=== PATIENT | female | born 1970 | race American Indian/Alaskan Native ===

== ENCOUNTER 2018-11-27 15:20 | Emergency (ER) | payer OTHER ==
[2018-11-27 15:30] VITALS: BP 123/85
[2018-11-27 17:50] LABS: Basophils % (Auto) 0.7 % (0.0-1.8); Eosinophils % (Auto) 0.8 % (0.0-4.3); Hematocrit 38.8 % (30.3-42.9); Hemoglobin 13.2 gm/dl (10.1-14.3); Lymphocytes # (Auto) 1.2 K/mm3 (1.2-5.4); Lymphocytes % (Auto) 26.9 % (13.4-35.0); Mean Corpuscular HGB Conc 34 % (30-34); Mean Corpuscular Volume 100 fl (79-97); Monocytes # (Auto) 0.4 K/mm3 (0.0-0.8); Monocytes % (Auto) 8.1 % (0.0-7.3); Platelet Count 294 K/mm3 (140-440); Red Blood Count 3.86 M/mm3 (3.65-5.03); Red Cell Distribution Width 13.4 % (13.2-15.2)
[2018-11-27 18:06] LABS: Alanine Aminotransferase 11 units/L (7-56); Albumin 4.2 g/dL (3.9-5); BUN/Creatinine Ratio 19; Blood Urea Nitrogen 13 mg/dL (7-17); Calcium 8.9 mg/dL (8.4-10.2); Hemolysis Index 12
--- NOTE | 2018-11-27 18:42 | Emergency Department Report ---
ED Dizziness HPI - General Chief Complaint: Dizziness Stated Complaint: WEAKNESS Time Seen by Provider: 11/27/18 18:22 Source: patient Mode of arrival: Ambulatory Limitations: No Limitations - History of Present Illness Initial Comments: Pt is a 48 yo female who presents to the ED with c/o dizziness that began 1 week ago. She states it feels like the room is spinning. The patient says it is worse with certain head movements and worse with bending over. The patient states it makes her feel nauseous and have episodes of emesis. She denies any LYNCH, numb ness, unilateral weakness, visual disturbance or speech disturbance. She denies any PMHx. She has not taken anything for her sx. - Related Data Previous Rx's Medication Instructions Recorded Last Taken Type Cetirizine HCl [ZyrTEC] 10 mg PO DAILY #30 tab.rapdis 11/27/18 Unknown Rx Fluticasone [Flonase] 1 spray NS QDAY #1 bottle 11/27/18 Unknown Rx Meclizine [Antivert] 25 mg PO TID PRN #30 tablet 11/27/18 Unknown Rx ED Review of Systems ROS: Stated complaint: WEAKNESS Other details as noted in HPI Comment: All other systems reviewed and negative ED Past Medical Hx - Social History Smoking Status: Current Every Day Smoker Substance Use Type: Alcohol - Medications Home Medications: Home Medications Medication Instructions Recorded Confirmed Last Taken Type Cetirizine HCl [ZyrTEC] 10 mg PO DAILY #30 tab.rapdis 11/27/18 Unknown Rx Fluticasone [Flonase] 1 spray NS QDAY #1 bottle 11/27/18 Unknown Rx Meclizine [Antivert] 25 mg PO TID PRN #30 tablet 11/27/18 Unknown Rx ED Physical Exam - General Limitations: No Limitations General appearance: alert, in no apparent distress - Head Head exam: Present: atraumatic, normocephalic - Eye Eye exam: Present: normal appearance, PERRL, EOMI. Absent: scleral icterus, conjunctival injection, nystagmus, periorbital swelling, periorbital tenderness - ENT ENT exam: Present: mucous membranes moist, other (pale nasal turbinates) - Neck Neck exam: Present: normal inspection, full ROM. Absent: tenderness, meningismus - Respiratory Respiratory exam: Present: normal lung sounds bilaterally. Absent: respiratory distress, wheezes, rales, rhonchi, stridor, chest wall tenderness, accessory mus pattie use, decreased breath sounds, prolonged expiratory - Cardiovascular Cardiovascular Exam: Present: regular rate, normal rhythm, normal heart sounds. Absent: systolic murmur, diastolic murmur, rubs, gallop - GI/Abdominal GI/Abdominal exam: Present: soft, normal bowel sounds. Absent: distended, tenderness, guarding, rebound, rigid - Neurological Exam Neurological exam: Present: alert, oriented X3, CN II-XII intact, normal gait, other (normal heel to paredes, normal finger to nose, 5/5 strength in the BUE/BLE, sensation intact, no neurodeficit, no nystagmus ). Absent: motor sensory deficit - Psychiatric Psychiatric exam: Present: normal affect, normal mood - Skin Skin exam: Present: warm, dry, intact ED Course Vital Signs 11/27/18 11/27/18 15:29 20:46 Temperature 98.3 F Pulse Rate 70 Respiratory 16 16 Rate Blood Pressure 123/85 O2 Sat by Pulse 98 Oximetry - Reevaluation(s) Reevaluation #1: 11/27/18 21:22 dizziness completely resolved after meclizine ED Medical Decision Making - Lab Data Result diagrams: 11/27/18 17:33 11/27/18 17:33 Lab Results 11/27/18 11/27/18 11/27/18 Range/Units 17:33 17:33 17:33 WBC 4.3 L (4.5-11.0) K/mm3 RBC 3.86 (3.65-5.03) M/mm3 Hgb 13.2 (10.1-14.3) gm/dl Hct 38.8 (30.3-42.9) % MCV 100 H (79-97) fl MCH 34 H (28-32) pg MCHC 34 (30-34) % RDW 13.4 (13.2-15.2) % Plt Count 294 (140-440) K/mm3 Lymph % (Auto) 26.9 (13.4-35.0) % [place] % (Auto) 8.1 H (0.0-7.3) % Eos % (Auto) 0.8 (0.0-4.3) % Baso % (Auto) 0.7 (0.0-1.8) % Lymph # 1.2 (1.2-5.4) K/mm3 [place] # 0.4 (0.0-0.8) K/mm3 Eos # 0.0 (0.0-0.4) K/mm3 Baso # 0.0 (0.0-0.1) K/mm3 Seg Neutrophils % 63.5 (40.0-70.0) % Seg Neutrophils # 2.8 (1.8-7.7) K/mm3 Sodium 142 (137-145) mmol/L Potassium 4.5 (3.6-5.0) mmol/L Chloride 105.0 (98-107) mmol/L Carbon Dioxide 25 (22-30) mmol/L Anion Gap 17 mmol/L BUN 13 (7-17) mg/dL Creatinine 0.7 (0.7-1.2) mg/dL Estimated GFR > 60 ml/min BUN/Creatinine Ratio 19 % Glucose 107 H (65-100) mg/dL Calcium 8.9 (8.4-10.2) mg/dL Total Bilirubin 0.30 (0.1-1.2) mg/dL AST 16 (5-40) units/L ALT 11 (7-56) units/L Alkaline Phosphatase 56 (35-129) units/L Total Protein 7.4 (6.3-8.2) g/dL Albumin 4.2 (3.9-5) g/dL Albumin/Globulin Ratio 1.3 % Lipase 20 (13-60) units/L Urine Color (Yellow) Urine Turbidity (Clear) Urine pH (5.0-7.0) Ur Specific [place] (1.003-1.030) Urine Protein (Negative) mg/dL Urine Glucose (UA) (Negative) mg/dL Urine Ketones (Negative) mg/dL Urine Blood (Negative) Urine Nitrite (Negative) Urine Bilirubin (Negative) Urine Urobilinogen (<2.0) mg/dL Ur Leukocyte Esterase (Negative) Urine WBC (Auto) (0.0-6.0) /HPF Urine RBC (Auto) (0.0-6.0) /HPF U Epithel Cells (Auto) (0-13.0) /HPF Urine Mucus /HPF Urine HCG, Qual (Negative) 11/27/18 Range/Units 19:00 WBC (4.5-11.0) K/mm3 RBC (3.65-5.03) M/mm3 Hgb (10.1-14.3) gm/dl Hct (30.3-42.9) % MCV (79-97) fl MCH (28-32) pg MCHC (30-34) % RDW (13.2-15.2) % Plt Count (140-440) K/mm3 Lymph % (Auto) (13.4-35.0) % [place] % (Auto) (0.0-7.3) % Eos % (Auto) (0.0-4.3) % Baso % (Auto) (0.0-1.8) % Lymph # (1.2-5.4) K/mm3 [place] # (0.0-0.8) K/mm3 Eos # (0.0-0.4) K/mm3 Baso # (0.0-0.1) K/mm3 Seg Neutrophils % (40.0-70.0) % Seg Neutrophils # (1.8-7.7) K/mm3 Sodium (137-145) mmol/L Potassium (3.6-5.0) mmol/L Chloride (98-107) mmol/L Carbon Dioxide (22-30) mmol/L Anion Gap mmol/L BUN (7-17) mg/dL Creatinine (0.7-1.2) mg/dL Estimated GFR ml/min BUN/Creatinine Ratio % Glucose (65-100) mg/dL Calcium (8.4-10.2) mg/dL Total Bilirubin (0.1-1.2) mg/dL AST (5-40) units/L ALT (7-56) units/L Alkaline Phosphatase (35-129) units/L Total Protein (6.3-8.2) g/dL Albumin (3.9-5) g/dL Albumin/Globulin Ratio % Lipase (13-60) units/L Urine Color Yellow (Yellow) Urine Turbidity Clear (Clear) Urine pH 5.0 (5.0-7.0) Ur Specific [place] 1.034 H (1.003-1.030) Urine Protein <15 mg/dl (Negative) mg/dL Urine Glucose (UA) Neg (Negative) mg/dL Urine Ketones Tr (Negative) mg/dL Urine Blood Neg (Negative) Urine Nitrite Neg (Negative) Urine Bilirubin Neg (Negative) Urine Urobilinogen 2.0 (<2.0) mg/dL Ur Leukocyte Esterase Neg (Negative) Urine WBC (Auto) 1.0 (0.0-6.0) /HPF Urine RBC (Auto) 4.0 (0.0-6.0) /HPF U Epithel Cells (Auto) 3.0 (0-13.0) /HPF Urine Mucus 2+ /HPF Urine HCG, Qual Negative (Negative) Vital Signs 11/27/18 11/27/18 15:29 20:46 Temperature 98.3 F Pulse Rate 70 Respiratory 16 16 Rate Blood Pressure 123/85 O2 Sat by Pulse 98 Oximetry Vital Signs (72 hours) 11/27/18 11/27/18 15:29 20:46 Temperature 98.3 F Pulse Rate 70 Respiratory 16 16 Rate Blood Pressure 123/85 O2 Sat by Pulse 98 Oximetry - EKG Data -: EKG Interpreted by Me EKG shows normal: sinus rhythm, axis, intervals, QRS complexes, ST-T waves Rate: normal - Medical Decision Making Pt is a 48 yo female who presents to the ED with c/o dizziness that began 1 week ago. She states it feels like the room is spinning. The patient says it is worse with certain head movements and worse with bending over. The patient states it makes her feel nauseous and have episodes of emesis. She denies any LYNCH, numbness, unilateral weakness, visual disturbance or speech disturbance. She denies any PMHx. She has not taken anything for her sx. no neuro deficits, normal gait, no nystagumus. UA is normal. Labs WNL. orthostatic vitals are normal. EKG is normal. Pt given a dose of meclizine and symptoms completely resolved. pt has pale turbinates will also tx for seasonal allergies. Will have pt follow up with an ENT doctor. Discussed in detail to return to the ED if continue having symptoms or any new or worsening symptoms. Critical care attestation.: If time is entered above; I have spent that time in minutes in the direct care of this critically ill patient, excluding procedure time. ED Disposition Clinical Impression: Dizziness, Seasonal allergies Disposition: DC-01 TO HOME OR SELFCARE Is pt being admited?: No Does the pt Need Aspirin: No Condition: Stable Instructions: Dizziness (ED) Additional Instructions: Please take medication as prescribed. Please return to the emergency room immediately for any new or worsening symptoms or if symptoms not improving. Please follow up with Dr. Alberto in the next 2-3 days. Please follow up with a primary care doctor in the next 2-3 days. Keep drinking plenty of fluids. Prescriptions: Meclizine [Antivert] 25 mg PO TID PRN #30 tablet PRN Reason: Vertigo Fluticasone [Flonase] 1 spray NS QDAY #1 bottle Cetirizine HCl [ZyrTEC] 10 mg PO DAILY #30 tab.rapdis Referrals: [facility] [Other] - 2-3 Days LES ALBERTO MD [Staff Physician] - 2-3 Days Time of Disposition: 21:27 Print Language: PANAMANIAN
[2018-11-27 19:45] LABS: Bilirubin,Urine NEG (Negative); Blood,Urine NEG (Negative); Color,Urine Yellow (Yellow); Mucus,Urine 2+ /HPF; Protein,Urine <15 mg/dL mg/dL (Negative)
[2018-11-27 19:53] LABS: HCG Qualitative,Urine Negative (Negative)
[2018-11-27] MEDS ORDERED: ANTIVERT PO ONE (19:56)
== END 2018-11-27 21:45 | disposition home or self-care (01) ==
LOC: ED 15:20
DX: R42 Dizziness and giddiness (principal); R11.2 Nausea with vomiting, unspecified; J30.2 Other seasonal allergic rhinitis; F17.200 Nicotine dependence, unspecified, uncomplicated
CPT/HCPCS: 36415; 80053; 81001; 81025; 83690; 85025; 93005; 93010

== ENCOUNTER 2022-02-05 15:34 | Emergency (ER) | payer MEDICAID, OTHER ==
--- NOTE | 2022-02-06 01:21 | Cat Scan Report ---
CT MAXILLOFACIAL WITHOUT CONTRAST INDICATION / CLINICAL INFORMATION: Fall/. TECHNIQUE: CT face was performed without the administration of intravenous contrast. In addition to a xial source images, coronal and sagittal MPR series were provided. All CT scans at this location are performed using CT dose reduction for ALARA by means of automated exposure control. COMPARISON: None available. FINDINGS: FACIAL BONES: Bilateral nasal bone deformities are demonstrated with minimal overlying soft tissue sw elling excluded. The nasal septum demonstrates rightward deviation. Osseous structures of the face an d mandible otherwise appear intact. PARANASAL SINUSES: No significant abnormality. ORBITS: No significant abnormality. SOFT TISSUES: No significant abnormality. VISUALIZED INTRACRANIAL STRUCTURES: No significant abnormality. ADDITIONAL FINDINGS: None. IMPRESSION: 1. Minimally displaced acute nasal bone fractures with minimal soft tissue swelling overlying. Signer Name: Steve Morales II, MD Signed: 02/06/2022 1:16 AM Workstation Name: [id number]
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
[2022-02-06 02:15] VITALS: BP 157/84
== END 2022-02-06 02:16 | disposition home or self-care (01) ==
LOC: ED 15:34
DX: S02.2XXA Fracture of nasal bones, initial encounter for closed fracture (principal); L01.00 Impetigo, unspecified; Z98.890 Other specified postprocedural states; F17.290 Nicotine dependence, other tobacco product, uncomplicated; W19.XXXA Unspecified fall, initial encounter; Y93.89 Activity, other specified; Y92.89 Other specified places as the place of occurrence of the external cause; Y99.8 Other external cause status
CPT/HCPCS: 70486; 99283

== ENCOUNTER 2022-02-08 10:15 | Emergency (ER) | payer MEDICAID ==
[2022-02-08] MEDS ORDERED: diphenhydrAMINE 50 MG/ML VIAL IV ONE (11:02)
[2022-02-08] MEDS ORDERED: SODIUM CHLORIDE 0.9% 1000 ML 1,000 ML IV ONE (11:02)
[2022-02-08] MEDS ORDERED: FAMOTIDINE 20 MG/2 ML INJ IV ONE (11:02)
[2022-02-08] MEDS ORDERED: methylPREDNISolone Sod Succinate 125 MG/2 ML INJ IV ONE (11:02)
--- NOTE | 2022-02-08 11:06 | Emergency Department Report ---
HPI - General Chief Complaint: Allergic Reaction PUI?: No Time Seen by Provider: 02/08/22 10:27 - HPI HPI: Patient is a 51-year-old female that comes to the emergency room with right- sided facial swelling. She had a recent fall and was seen in the ER and started on amoxicillin. She and her mind thinks that this reaction is related to the amoxicillin. However, she is only taken 1 dose of the amoxicillin. I suspect is more likely related to her fall. She is already had a CT with a small nasal bone fracture. Right side of her face is red and swollen consistent with cellulitic sort of response. She does have a mild abrasion from her previous fall. Patient denies any fever or chills. She has no hypotension or tachycardia. ABCs are intact. She is controlling secretions. Swallowing without difficulty. ED Past Medical Hx - Past Medical History Previous Medical History?: No Hx Seizures: Yes Additional medical history: Vaginal delivery x 1 - Surgical History Past Surgical History?: Yes Additional Surgical History: x 1 - Family History Family history: no significant - Social History Smoking Status: Current Every Day Smoker Substance Use Type: None - Medications Home Medications: Home Medications Medication Instructions Recorded Confirmed Last Taken Type Cetirizine HCl [ZyrTEC] 10 mg PO DAILY #30 capsule 02/08/22 Unknown Rx Clindamycin [Clindamycin CAP] 300 mg PO Q8H #30 cap 02/08/22 Unknown Rx Neomy/Baci/Polymyx B Opth Oint 1 applic TP BID #1 tube 02/08/22 Unknown Rx [Neosporin] Polyvinyl Alcohol [Artificial 2 drop OD Q4H #1 bottle 02/08/22 Unknown Rx Tears] predniSONE [Deltasone] 20 mg PO DAILY #5 tablet 02/08/22 Unknown Rx ED Review of Systems ROS: Stated complaint: ALLERGIC REACTION Other details as noted in HPI Comment: All other systems reviewed and negative Physical Exam - Physical Exam Vital Signs: Vital Signs 02/08/22 10:39 Temperature 98.9 F Pulse Rate 68 Respiratory 16 Rate Blood Pressure 119/85 O2 Sat by Pulse 98 Oximetry Physical Exam: On exam on admission. Alert and oriented x4 Move all extremities well Right sided facial swelling noted. Right eyes swollen and edematous. I am able to open and pupils equal round react to light. ABCs intact. Taking p.o. Controlling secretions Abdomen soft nontender No CVA tenderness ED Course Vital Signs 02/08/22 10:39 Temperature 98.9 F Pulse Rate 68 Respiratory 16 Rate Blood Pressure 119/85 O2 Sat by Pulse 98 Oximetry ED Medical Decision Making - Medical Decision Making Vital Signs 02/08/22 02/08/22 02/08/22 10:39 11:48 15:51 Temperature 98.9 F Pulse Rate 68 85 66 Respiratory 16 17 17 Rate Blood Pressure 119/85 Blood Pressure 154/88 135/65 [Left] O2 Sat by Pulse 98 [address] scan from previous visit reviewed. I have asked patient to stop the amoxicillin. In the ER patient was given normal saline, 6 clindamycin, Solu-Medrol. Solu- Medrol did relieve the swelling. Family at bedside. Both patient and family educated on discharge plan of care including diet, activity, medications and follow-up. They all verbalized understanding. If patient has any further problems she is to return to the ER for further evaluation. At that time I would recommend repeat Inder imaging. On discharge patient is ambulatory, nontoxic [id number] and taking p.o. - Differential Diagnosis Cellulitis versus fracture versus allergic reaction Critical care attestation.: If time is entered above; I have spent that time in minutes in the direct care of this critically ill patient, excluding procedure time. ED Disposition Clinical Impression: Facial cellulitis Disposition: 01 HOME / SELF CARE / HOMELESS Is pt being admited?: No Does the pt Need Aspirin: No Condition: Stable Instructions: Cellulitis, Adult Additional Instructions: Medications as ordered today. no more amoxicillin follow up with pcp in 48 hours for recheck referral below Prescriptions: Polyvinyl Alcohol [Artificial Tears] 2 drop OD Q4H #1 bottle Clindamycin [Clindamycin CAP] 300 mg PO Q8H #30 cap predniSONE [Deltasone] 20 mg PO DAILY #5 tablet Neomy/Baci/Polymyx B Opth Oint [Neosporin] 1 applic TP BID #1 tube Cetirizine HCl [ZyrTEC] 10 mg PO DAILY #30 capsule Referrals: DANTE VIEYRA MD [Staff Physician] - 3-5 Days Forms: Work/School Release Form(ED) Time of Disposition: 14:01
[2022-02-08] MEDS ORDERED: CLINDAMYCIN 600 MG/50 mL 600 MG/50 ML BAG IV ONE (11:47)
[2022-02-08 15:51] VITALS: BP 135/65
== END 2022-02-08 18:24 | disposition home or self-care (01) ==
LOC: ED 10:15
DX: L03.211 Cellulitis of face (principal); F17.200 Nicotine dependence, unspecified, uncomplicated
CPT/HCPCS: 96361; 96365; 96375; 99282; J1200; J2930; J3490; J7030; J7502

== ENCOUNTER 2022-02-10 12:14 | Emergency (ER) | payer MEDICAID ==
[2022-02-10 12:35] VITALS: BP 126/80
== END 2022-02-11 09:23 | disposition left against medical advice (07) ==
LOC: ED 12:14
DX: T78.40XA Allergy, unspecified, initial encounter (principal); Z53.21 Procedure and treatment not carried out due to patient leaving prior to being seen by health care provider; X58.XXXA Exposure to other specified factors, initial encounter